=== PATIENT | female | born 1975 | race African-American/Black ===

== ENCOUNTER 2020-10-31 01:28 | Emergency (ER) | payer MEDICAID, OTHER ==
[~2020-10-31] VITALS: Ht 165.1 cm; Wt 89.3 kg
[2020-10-31 01:34] VITALS: BP 114/82
[2020-10-31] MEDS ORDERED: FLUORESCEIN OPHTHALMIC 1 MG STRIP ONE (01:54)
[2020-10-31] MEDS ORDERED: FLUORESCEIN OPHTHALMIC 1 MG STRIP EACHEYE ONE (02:00)
[2020-10-31] MEDS ORDERED: PROPARACAINE OPHTH 0.5%, 15ML EACHEYE ONE (02:00)
== END 2020-10-31 02:48 | disposition home or self-care (01) ==
LOC: ED 02:00
DX: F15.10 Other stimulant abuse, uncomplicated (principal); F17.210 Nicotine dependence, cigarettes, uncomplicated; Z72.9 Problem related to lifestyle, unspecified
CPT/HCPCS: 99406